=== PATIENT | female | born 1995 | race Hispanic/Latino ===

== ENCOUNTER 2023-01-09 22:31 | Emergency (ER) | payer MEDICAID ==
[2023-01-09 23:39] LABS: BASOPHILS # (AUTO) 0.04 K/uL (0.00-0.20); BASOPHILS % (AUTO) 0.4 % (0.0-5.0); EOSINOPHILS # (AUTO) 0.03 K/uL (0.00-0.70); EOSINOPHILS % (AUTO) 0.3 % (0.0-8.0); HEMATOCRIT 33.4 % (36-48); IMMATURE GRANULOCYTE ABSOLUTE 0.03 K/uL (0-1); LYMPHOCYTES # (AUTO) 1.8 K/uL (1.0-4.8); LYMPHOCYTES % (AUTO) 19.7 % (21.0-51.0); MEAN CORPUSCULAR HEMOGLOBIN 30.3 pg (27.0-33.0); MEAN CORPUSCULAR HGB CONC 35.3 g/dL (32.0-36.0); MEAN CORPUSCULAR VOLUME 85.6 fL (79-99); MONOCYTES # (AUTO) 0.5 K/uL (0.1-1.0); MONOCYTES % (AUTO) 5.1 % (3.0-13.0); NEUTROPHILS # (AUTO) 6.7 K/uL (1.8-7.7); NEUTROPHILS % (AUTO) 74.2 % (40.0-77.0); PLATELET COUNT (AUTO) 181 K/uL (130-400)
[2023-01-09 23:52] LABS: APPEARANCE,URINE TURBID (CLEAR); BILIRUBIN,URINE SMALL mg/dL (NEGATIVE); COLOR,URINE RED (YELLOW); GLUCOSE, URINE (UA) NEGATIVE (NEGATIVE); KETONES,URINE 5 mg/dL (NEGATIVE); LEUKOCYTE ESTERASE ,URINE NEGATIVE Leu/uL (NEGATIVE); NITRATE,URINE POSITIVE (NEGATIVE); OCCULT BLOOD,URINE LARGE (NEGATIVE); PH,URINE 6.5 (5.0-8.0); PROTEIN,URINE >=300 mg/dL (NEGATIVE); UROBILINOGEN,URINE 0.2 mg/dL (0.2-1.0)
[2023-01-09 23:56] LABS: ADD UA MICROSCOPIC YES
[2023-01-10 00:01] LABS: BACTERIA,URINE None Seen /HPF (None Seen); RBC,URINE TNTC /HPF (0-1); SQUAMOUS EPITHELIAL CELL,UR None Seen /HPF (0-2); WBC,URINE 0-1 /HPF (0-1)
[2023-01-10 00:04] LABS: ALBUMIN 3.5 g/dL (3.5-5.0); BILIRUBIN,TOTAL 0.5 mg/dL (0.2-1.0); CREATININE 0.7 mg/dL (0.5-1.5); POTASSIUM 3.1 mmol/L (3.5-5.1)
[2023-01-10] MEDS ORDERED: IBUP-1493 PO (02:21)
[2023-01-10] MEDS ORDERED: ACETAMINOPHEN WITH CODEINE 1 TAB TAB PO ONE (02:30)
[2023-01-10 02:39] VITALS: BP 118/54; PULSE 68; RESP 18; O2SAT 99
== END 2023-01-10 02:40 | disposition home or self-care (01) ==
LOC: EDH 22:31
DX: O02.1 Missed abortion (principal)
CPT/HCPCS: 36415; 76801; 80053; 81001; 83690; 84702; 85025; 86850; 86900; 86901; 87088

== ENCOUNTER 2023-10-04 21:04 | Observation (INO) | payer MEDICAID ==
[~2023-10-04] VITALS: Ht 157.5 cm; Wt 85.2 kg
[~2023-10-04 21:04] MED LIST: IBUP-1493 PO
[2023-10-04 21:06] VITALS: BP 120/76; PULSE 79; RESP 18
[2023-10-04 21:46] LABS: APPEARANCE,URINE CLEAR (CLEAR); BILIRUBIN,URINE NEGATIVE (NEGATIVE); COLOR,URINE LIGHT-YELLOW (YELLOW); GLUCOSE, URINE (UA) NEGATIVE (NEGATIVE); KETONES,URINE NEGATIVE (NEGATIVE); LEUKOCYTE ESTERASE ,URINE NEGATIVE Leu/uL (NEGATIVE); NITRATE,URINE NEGATIVE (NEGATIVE); OCCULT BLOOD,URINE NEGATIVE (NEGATIVE); PROTEIN,URINE NEGATIVE (NEGATIVE); UROBILINOGEN,URINE 0.2 mg/dL (0.2-1.0)
[2023-10-04 21:50] LABS: ADD UA MICROSCOPIC NO
[2023-10-04 21:51] LABS: AMPHET/METH SCREEN,URINE NEGATIVE (NEGATIVE); BARBITURATE SCREEN, URINE NEGATIVE (NEGATIVE); BENZODIAZEPINES SCREEN,URINE NEGATIVE (NEGATIVE); CANNABINOID SCREEN,URINE POSITIVE (NEGATIVE); COCAINE SCREEN,URINE NEGATIVE (NEGATIVE); OPIATE SCREEN,URINE NEGATIVE (NEGATIVE); PHENCYCLIDINE SCREEN,URINE NEGATIVE (NEGATIVE)
== END 2023-10-04 22:38 | disposition home or self-care (01) ==
LOC: EDH 21:04 → LDH 21:19
PROVIDERS: ADMIT Obstetrics & Gynecology; ATTEND Obstetrics & Gynecology
DX: O26.893 Other specified pregnancy related conditions, third trimester (principal); R10.2 Pelvic and perineal pain; Z3A.32 32 weeks gestation of pregnancy
CPT/HCPCS: 80305; 81003; G0379; G0378

== ENCOUNTER 2023-11-25 17:45 | Inpatient (IN) | payer MEDICAID ==
[~2023-11-25] VITALS: Ht 154.9 cm; Wt 83.9 kg
[2023-11-25] MEDS ORDERED: metoCLOPRAmide 10 MG/2 ML VIAL IVP PRN (18:30)
[2023-11-25] MEDS ORDERED: ceFAZolin SODIUM 2 GM VIAL IVPB PRN (18:30)
[2023-11-25 18:52] LABS: HEMATOCRIT 30.4 % (36-48); MEAN CORPUSCULAR HEMOGLOBIN 25.3 pg (27.0-33.0); MEAN CORPUSCULAR HGB CONC 32.2 g/dL (32.0-36.0); MEAN CORPUSCULAR VOLUME 78.4 fL (79-99); RED BLOOD CELL COUNT(AUTO) 3.88 MIL/uL (4.00-5.50); RED CELL DISTRIBUTION WIDTH 14.1 % (11.0-15.5); WHITE BLOOD COUNT (AUTO) 8.7 K/uL (4.8-10.8)
[2023-11-25] MEDS: morPHINE PF 100MG/10ML AMP IV ONE (18:53)
[2023-11-25] MEDS: ondanSETRON 4MG INJ ONE (18:55)
[2023-11-25] MEDS: CITRIC ACID/SODIUM CITRATE 30 ML UDCUP PO PRN (18:57)
[2023-11-25] MEDS: LACTATED RINGERS 1000ML 1,000 ML IV SCH (18:57)
[2023-11-25] MEDS: CALDOLOR 800MG+NS 250ML 250 ML IV PRN (18:58)
[2023-11-25] MEDS: ceFAZolin SODIUM 1 GM VIAL IVPB PRN (18:58)
[2023-11-25 19:35] LABS: HIV 1&2 ANTIBODY Non-Reactive (Negative)
[2023-11-25 19:36] LABS: HIV-1 p24 Antigen Non-Reactive (Negative)
[2023-11-25] MEDS: GLYCOPYRROLATE 0.2 MG/ML 5 ML VIAL ONE (19:54)
[2023-11-25] MEDS: MIDAZOLAM HCL 1 MG/ML 2ML VIAL ONE (20:01)
[2023-11-25 21:44] LABS: APPEARANCE,URINE CLEAR (CLEAR); BILIRUBIN,URINE NEGATIVE (NEGATIVE); COLOR,URINE LIGHT-YELLOW (YELLOW); GLUCOSE, URINE (UA) NEGATIVE (NEGATIVE); KETONES,URINE 100 mg/dL (NEGATIVE); LEUKOCYTE ESTERASE ,URINE NEGATIVE Leu/uL (NEGATIVE); NITRATE,URINE NEGATIVE (NEGATIVE); OCCULT BLOOD,URINE NEGATIVE (NEGATIVE); PROTEIN,URINE NEGATIVE (NEGATIVE); UROBILINOGEN,URINE 0.2 mg/dL (0.2-1.0)
[2023-11-25 21:45] LABS: ADD UA MICROSCOPIC YES
[2023-11-25 21:51] LABS: BACTERIA,URINE RARE /HPF (None Seen); RBC,URINE 0-1 /HPF (0-1)
[2023-11-25 21:52] LABS: AMPHET/METH SCREEN,URINE NEGATIVE (NEGATIVE); BARBITURATE SCREEN, URINE NEGATIVE (NEGATIVE); BENZODIAZEPINES SCREEN,URINE POSITIVE (NEGATIVE); CANNABINOID SCREEN,URINE NEGATIVE (NEGATIVE); COCAINE SCREEN,URINE NEGATIVE (NEGATIVE); OPIATE SCREEN,URINE POSITIVE (NEGATIVE); PHENCYCLIDINE SCREEN,URINE NEGATIVE (NEGATIVE)
[2023-11-25 23:30] VITALS: BP 106/69; PULSE 67; RESP 17; TEMP 97.6
[2023-11-26] MEDS ORDERED: BisaCODYL 10 MG SUPP.RECT RC PRN
[2023-11-26] MEDS ORDERED: DEXTROSE 5 %-0.45 % NACL 1,000 ML IV PRN
[2023-11-26] MEDS ORDERED: MEPERIDINE-PF 75 MG/ML SYG IM PRN
[2023-11-26] MEDS ORDERED: PROMETHAZINE HCL 25 MG/ML 1ML AMPULE IM PRN
[2023-11-26] MEDS ORDERED: 0.9%NACL 10ML VIAL IVP PRN
[2023-11-26] MEDS ORDERED: LANOLIN 30GM OINTMENT TP PRN
[2023-11-26] MEDS: DIPH,PERTUSS(ACELL),TET VAC/PF 0.5 ML VIAL IM SCH (00:18)
[2023-11-26 03:21] VITALS: BP 109/66; PULSE 66; RESP 17; TEMP 97.7
[2023-11-26] MEDS: CALDOLOR 800MG+NS 250ML 250 ML IV SCH (04:24)
[2023-11-26 07:26] LABS: BASOPHILS # (AUTO) 0.02 K/uL (0.00-0.20); BASOPHILS % (AUTO) 0.2 % (0.0-5.0); EOSINOPHILS # (AUTO) 0.03 K/uL (0.00-0.70); EOSINOPHILS % (AUTO) 0.3 % (0.0-8.0); HEMATOCRIT 27.7 % (36-48); IMMATURE GRANULOCYTE ABSOLUTE 0.03 K/uL (0-1); LYMPHOCYTES # (AUTO) 1.5 K/uL (1.0-4.8); LYMPHOCYTES % (AUTO) 16.1 % (21.0-51.0); MEAN CORPUSCULAR HEMOGLOBIN 25.3 pg (27.0-33.0); MEAN CORPUSCULAR HGB CONC 32.5 g/dL (32.0-36.0); MEAN CORPUSCULAR VOLUME 77.8 fL (79-99); MONOCYTES # (AUTO) 0.5 K/uL (0.1-1.0); MONOCYTES % (AUTO) 5.3 % (3.0-13.0); NEUTROPHILS # (AUTO) 7.4 K/uL (1.8-7.7); NEUTROPHILS % (AUTO) 77.8 % (40.0-77.0); PLATELET COUNT (AUTO) 150 K/uL (130-400); RED BLOOD CELL COUNT(AUTO) 3.56 MIL/uL (4.00-5.50); WHITE BLOOD COUNT (AUTO) 9.6 K/uL (4.8-10.8)
[2023-11-26 07:34] VITALS: BP 125/85; PULSE 87; RESP 17; TEMP 97.6
[2023-11-26] MEDS: doCUSate SODIUM 100 MG CAP PO SCH (08:51)
[2023-11-26 09:46] LABS: RAPID PLASMA REAGIN NONREACTIVE (NONREACTIVE)
[2023-11-26] MEDS ORDERED: FLU VACC TS2024-25(6MOS UP)/PF 45 MCG/0.5 ML ML IM ONE (10:00)
[2023-11-26 11:38] VITALS: BP 117/84; PULSE 75; RESP 17
[2023-11-26] MEDS: acetaMINOPHEN 500 MG TABLET PO PRN (11:55)
[2023-11-26] MEDS: CALDOLOR 800MG+NS 250ML 250 ML IV ONE (13:26)
[2023-11-26 15:41] VITALS: BP 113/80; PULSE 71; RESP 17; TEMP 97.3
[2023-11-26 19:31] VITALS: BP 124/78; PULSE 72; RESP 16; TEMP 96
[2023-11-26] MEDS ORDERED: HYDROcodone/APAP 5/325 1 TAB TABLET PO PRN (20:00)
[2023-11-26] MEDS: SIMETHICONE 80 MG TAB.CHEW PO PRN (20:14)
[2023-11-26 23:12] VITALS: BP 115/81; PULSE 68; RESP 16; TEMP 97.5
[2023-11-26] MEDS: acetaMINOPHEN WITH coDEINE 1 TAB TAB PO PRN (23:53)
[2023-11-27] MEDS: MEASLES/MUMPS/RUBELLA VACCINE, LIVE 0.5 ML/VIAL SQ ONE (03:02)
[2023-11-27 03:30] VITALS: BP 101/70; PULSE 56; RESP 20; TEMP 97.4
[2023-11-27] MEDS: ibuPROFEN 600 MG TABLET PO PRN (03:53)
[2023-11-27 08:00] VITALS: BP 106/70; PULSE 65; RESP 18; TEMP 97.8
[2023-11-27 11:54] VITALS: BP 125/65; PULSE 83; RESP 18; TEMP 98.2
== END 2023-11-27 12:54 | disposition home or self-care (01) | DRG 540 ==
LOC: LDH 17:50 → WSH 23:30
PROVIDERS: ADMIT Obstetrics & Gynecology; ATTEND Obstetrics & Gynecology
PROC: 10D00Z1 Extraction of Products of Conception, Low, Open Approach (ICD-10-PCS; principal; 2023-11-25 20:01)
PROC: 3E0234Z Introduction of Serum, Toxoid and Vaccine into Muscle, Percutaneous Approach (ICD-10-PCS; 2023-11-27)
DX: O32.2XX0 Maternal care for transverse and oblique lie, not applicable or unspecified (principal); O99.02 Anemia complicating childbirth; O32.1XX0 Maternal care for breech presentation, not applicable or unspecified; Z3A.40 40 weeks gestation of pregnancy; Z23 Encounter for immunization; Z37.0 Single live birth
CPT/HCPCS: 36415; 59510; 80305; 81001; 85025; 85027; 86592; 86701; 86850; 86900; 86901; 87340; 87390; 90707; 90715; A4344; G0378; J0690; J1741; J2250; J2274; J2405; J2590; J3490; J7120; A4248